=== PATIENT | female | born 1955 | race Caucasian/White ===

== ENCOUNTER 2016-07-02 01:21 | Emergency (ER) | payer SELFPAY ==
[2016-07-02] MEDS ORDERED: PHENAZOPYRIDINE 100 MG TABLET PO STA (02:06)
[2016-07-02] MEDS ORDERED: PHENAZOPYRIDINE 100 MG TABLET PO ONE (02:08)
[2016-07-02] MEDS ORDERED: CEPHALEXIN 250 MG CAPSULE PO STA (02:27)
[2016-07-02] MEDS ORDERED: CEPHALEXIN 250 MG CAPSULE PO ONE (02:29)
== END 2016-07-02 02:31 | disposition home or self-care (01) ==
DX: N30.01 Acute cystitis with hematuria (principal); R03.0 Elevated blood-pressure reading, without diagnosis of hypertension
CPT/HCPCS: 81001; 87077; 87086; 87181; 99283; A9270